=== PATIENT | female | born 1965 | race Caucasian/White ===

== ENCOUNTER 2016-02-28 12:36 | Inpatient (IN) | payer OTHER ==
[~2016-02-28] VITALS: Ht 177.8 cm; Wt 63.2 kg
[~2016-02-28 12:36] MED LIST: ADDERALL30 MG PO; ADVAIR 250/501 DISK IH; ADVAIR HFA120 INHALA IH; CITALOPRAM HBR40 M1 PO; CLARITIN10 M3 PO; CLONAZEPAM1 MG PO; Claritin,Alavart PO; EFFEXOR XR150 MG PO; IBUPROFEN800 MG PO; INDERAL10 MG PO; INDERAL20 MG PO; KLONOPIN0.5 M1 PO; Medrol Dosepak PO; NICOTINE PATCH1 EAC2 TD; PREDNISONE10 MG PO; PROAIR HFA8.5 GM IH; Proventil,Ventolin H IH; RISPERDAL0.5 MG PO; RISPERDAL1 MG PO; RISPERDAL2 MG PO; SPIRIVA RESPIMAT4 GM IH; SPIRIVA1 INHALATI IH; STRATTERA100 MG PO; STRATTERA60 MG PO; Strattera PO; VENLAFAXINE HC150 M1 PO; VITAMIN D31000 UNIT PO; VYVANSE70 MG PO; Vyvanse PO; Zithromax PO; risperDAL PO
[2016-02-28 13:20] LABS: EOSINOPHIL (%) 0.8 % (0-5); EOSINOPHIL COUNT 0.1 K/uL (0-0.3); HEMATOCRIT 36.3 % (36.0-46.0); IMMATURE GRANULOCYTE (%) 0.2 % (0.0-0.7); IMMATURE GRANULOCYTE COUNT 0.2 K/uL; LYMPHOCYTE COUNT 0.7 K/uL (1.0-2.8); MCH 31.1 PG (29.0-34.0); MCHC 32.8 G/DL (30.0-36.0); MCV 94.8 FL (83-99); MEAN PLAT.VOLUME 8.9 uM^3 (9.5-12.4); MONOCYTE (%) 8.4 % (3-12); MONOCYTE COUNT 0.8 K/uL (0-0.8); NEUTROPHIL (%) 82.4 % (45-76); NEUTROPHIL COUNT 7.4 K/uL (1.8-6.4); PLATELET COUNT 329 K/uL (156-360); RBC DIS.WIDTH-CV 11.9 % (11.8-14.6); RBC DIS.WIDTH-SD 40.4 % (39-53); RED BLOOD COUNT 3.83 M/uL (3.80-5.20)
[2016-02-28 13:26] LABS: CHLORIDE 95 mEq/L (99-109); POTASSIUM 3.8 mEq/L (3.7-5.4); SODIUM 136 mEq/L (136-147)
[2016-02-28 13:28] LABS: GLUCOSE 112 mg/dL (70-99)
[2016-02-28 13:29] LABS: ANION GAP 9 MEQ/L (2-14)
[2016-02-28 13:30] LABS: TOTAL BILIRUBIN 0.5 mg/dL (0.0-1.0)
[2016-02-28 13:31] LABS: ALKALINE PHOSPHATASE 74 IU/L (3-129)
[2016-02-28 13:32] LABS: GFR ESTIMATE (CALCULATED) > 59 mL/min/
[2016-02-28 13:33] LABS: UREA NITROGEN (BUN) 13 mg/dL (9-23)
[2016-02-28 18:37] LABS: ADD MIUA? NO; BILIRUBIN NEGATIVE; BLOOD NEGATIVE; COLOR YELLOW ((YELLOW)); GLUCOSE (STRIP) NEGATIVE; KETONES NEGATIVE; LEUKOCYTES NEGATIVE; NITRITE NEGATIVE; PH, URINE 6.5 (5-8); PROTEIN (STRIP) TRACE
[2016-02-28] MEDS ORDERED: INDERAL10 MG PO (19:38)
[2016-02-28] MEDS ORDERED: NICOTINE PATCH1 EAC1 TD (19:38)
[2016-02-28] MEDS ORDERED: EFFEXOR XR75 MG PO (19:39)
[2016-02-28] MEDS ORDERED: VENLAFAXINE HCL75 M3 PO (19:39)
[2016-02-28] MEDS ORDERED: ZYPREXA5 MG PO (19:43)
[2016-02-28] MEDS ORDERED: KENALOG,ARISTOC15 GM TP (19:43)
[2016-02-28 21:50] LABS: D-DIMER ELISA > 4.00 mg/L FEU (< 0.57)
[2016-02-28 22:05] LABS: TROP-I INTERPRETATION NEGATIVE; TROPONIN-I < 0.01 ng/mL (0.0-0.30)
[2016-02-28 23:33] VITALS: BP 112/54
[2016-02-29 02:42] LABS: HEMATOCRIT 34.8 % (36.0-46.0); MCH 31.6 PG (29.0-34.0); MCHC 32.8 G/DL (30.0-36.0); MCV 96.4 FL (83-99); MEAN PLAT.VOLUME 8.8 uM^3 (9.5-12.4); PLATELET COUNT 303 K/uL (156-360); RBC DIS.WIDTH-CV 12.3 % (11.8-14.6); RBC DIS.WIDTH-SD 42.1 % (39-53); RED BLOOD COUNT 3.61 M/uL (3.80-5.20); WHITE BLOOD COUNT 8.5 K/uL (4.1-10.2)
[2016-02-29 02:51] LABS: CHLORIDE 99 mEq/L (99-109); POTASSIUM 3.8 mEq/L (3.7-5.4); SODIUM 141 mEq/L (136-147)
[2016-02-29 02:54] LABS: GLUCOSE 100 mg/dL (70-99)
[2016-02-29 02:55] LABS: ANION GAP 11 MEQ/L (2-14); TOTAL BILIRUBIN 0.4 mg/dL (0.0-1.0)
[2016-02-29 02:57] LABS: ALKALINE PHOSPHATASE 71 IU/L (3-129); GFR ESTIMATE (CALCULATED) > 59 mL/min/
[2016-02-29 02:58] LABS: UREA NITROGEN (BUN) 10 mg/dL (9-23)
[2016-02-29 03:05] LABS: TROP-I INTERPRETATION NEGATIVE; TROPONIN-I 0.08 ng/mL (0.0-0.30)
[2016-02-29 04:51] VITALS: BP 90/47
[2016-02-29 08:00] VITALS: BP 106/53
[2016-02-29 09:27] LABS: TROP-I INTERPRETATION NEGATIVE; TROPONIN-I 0.26 ng/mL (0.0-0.30)
[2016-02-29 12:31] VITALS: BP 116/58
[2016-02-29 16:03] VITALS: BP 114/59
[2016-02-29 19:02] LABS: PREALBUMIN < 3.0 mg/dL (10-40)
[2016-02-29 20:29] VITALS: BP 111/56
[2016-02-29 23:43] VITALS: BP 113/58
[2016-03-01 01:25] LABS: TROP-I INTERPRETATION INDETERMINATE; TROPONIN-I 0.32 ng/mL (0.0-0.30)
[2016-03-01 04:13] VITALS: BP 115/92
[2016-03-01 07:23] LABS: HEMATOCRIT 35.9 % (36.0-46.0); MCH 31.3 PG (29.0-34.0); MCHC 32.3 G/DL (30.0-36.0); MCV 96.8 FL (83-99); MEAN PLAT.VOLUME 9.4 uM^3 (9.5-12.4); PLATELET COUNT 320 K/uL (156-360); RBC DIS.WIDTH-CV 12.6 % (11.8-14.6); RBC DIS.WIDTH-SD 44.7 % (39-53); RED BLOOD COUNT 3.71 M/uL (3.80-5.20); WHITE BLOOD COUNT 10.7 K/uL (4.1-10.2)
[2016-03-01 07:32] LABS: INTER. NORMALIZED RATIO 1.1; PROTHROMBIN TIME 11.3 (9.2-11.2)
[2016-03-01 07:34] VITALS: BP 124/61
[2016-03-01 07:47] LABS: ANION GAP 10 MEQ/L (2-14); CHLORIDE 97 MEQ/L (99-109); GFR ESTIMATE (CALCULATED) > 59 mL/min/; GLUCOSE 107 mg/dL (70-99); POTASSIUM 3.8 MEQ/L (3.7-5.4); SAMPLE HEMOLYSIS CHECK 1; SAMPLE ICTERIC CHECK 0; SAMPLE LIPEMIA CHECK 0; SODIUM 143 MEQ/L (136-147); UREA NITROGEN (BUN) 4 mg/dL (9-23)
[2016-03-01 07:48] LABS: TROP-I INTERPRETATION INDETERMINATE; TROPONIN-I 0.38 ng/mL (0.0-0.30)
[2016-03-01 12:23] VITALS: BP 101/56
[2016-03-01 15:42] VITALS: BP 115/69
[2016-03-01 20:21] VITALS: BP 108/62
[2016-03-01 23:33] LABS: ADD MIUA? NO; BILIRUBIN NEGATIVE; BLOOD NEGATIVE; COLOR YELLOW ((YELLOW)); GLUCOSE (STRIP) NEGATIVE; KETONES NEGATIVE; LEUKOCYTES NEGATIVE; NITRITE NEGATIVE; PROTEIN (STRIP) NEGATIVE; SPECIFIC GRAVITY 1.012 (1.000-1.030); UCUL ADDED? NO; UROBILINOGEN 0.2 MG/DL (0.2-1.0)
[2016-03-02 00:06] VITALS: BP 109/59
[2016-03-02 04:14] VITALS: BP 100/51
[2016-03-02 07:44] VITALS: BP 112/81
[2016-03-02 11:44] VITALS: BP 112/56
[2016-03-02 13:24] LABS: CHLAMYDIA TRACHOMATIS NEGATIVE; NEISSERIA GONORRHOEAE NEGATIVE
[2016-03-02 15:55] VITALS: BP 114/68
[2016-03-02 21:17] VITALS: BP 132/69
[2016-03-03] VITALS (8 sets, daily range): BP systolic 100–136; BP diastolic 52–78
[2016-03-03 06:54] LABS: C DIFF TOXIN NEGATIVE (NEGATIVE)
[2016-03-03 06:56] LABS: PROBE CHECK PASS; SPECIMEN PROCESSING CONTROL PASS
[2016-03-03 10:04] LABS: HEMATOCRIT 34.2 % (36.0-46.0); MCH 31.4 PG (29.0-34.0); MCHC 31.6 G/DL (30.0-36.0); MCV 99.4 FL (83-99); MEAN PLAT.VOLUME 9.6 uM^3 (9.5-12.4); PLATELET COUNT 295 K/uL (156-360); RBC DIS.WIDTH-CV 12.7 % (11.8-14.6); RBC DIS.WIDTH-SD 45.9 % (39-53); RED BLOOD COUNT 3.44 M/uL (3.80-5.20)
[2016-03-03 10:08] LABS: WHITE BLOOD COUNT 5.6 K/uL (4.1-10.2)
[2016-03-03 10:23] LABS: ANION GAP ND MEQ/L (2-14); CHLORIDE 99 MEQ/L (99-109); GFR ESTIMATE (CALCULATED) > 59 mL/min/; GLUCOSE 87 mg/dL (70-99); POTASSIUM 3.6 MEQ/L (3.7-5.4); SAMPLE HEMOLYSIS CHECK 0; SAMPLE ICTERIC CHECK 0; SAMPLE LIPEMIA CHECK 0; SODIUM 147 MEQ/L (136-147); UREA NITROGEN (BUN) 5 mg/dL (9-23)
[2016-03-03 10:26] LABS: CARBON DIOXIDE (BICARBONATE) > 40.0 MEQ/L (20-31)
[2016-03-03 10:31] LABS: TROP-I INTERPRETATION NEGATIVE; TROPONIN-I 0.06 ng/mL (0.0-0.30)
[2016-03-04] VITALS (8 sets, daily range): BP systolic 99–129; BP diastolic 53–94
[2016-03-04 05:42] LABS: ADD MIUA? NO; BILIRUBIN NEGATIVE; BLOOD NEGATIVE; COLOR YELLOW ((YELLOW)); GLUCOSE (STRIP) NEGATIVE; KETONES NEGATIVE; LEUKOCYTES NEGATIVE; NITRITE NEGATIVE; PH, URINE 7.5 (5-8); PROTEIN (STRIP) NEGATIVE; SPECIFIC GRAVITY 1.011 (1.000-1.030); UCUL ADDED? NO; UROBILINOGEN 0.2 MG/DL (0.2-1.0)
[2016-03-04 09:53] LABS: BASE EXCESS 13.1 mEq/L (-3 to +3); BICARBONATE 39.9 mEq/L (22-26); CARBOXY HGB 1.8 % (0-5); COMMENTS - BLOOD GASES A+C+; DEVICE NC; METHEMOGLOBIN 1.1 % (0-1.5); O2 FLOW 3 L/MIN; PCO2 63 mm Hg (35-45); PO2 87 mm Hg (80-100); SITE RR; TOTAL RESP RATE 14 resp/min; pH 7.41 (7.35-7.45)
[2016-03-05 06:44] LABS: EOSINOPHIL (%) 0 % (0-5); HEMATOCRIT 30.2 % (36.0-46.0); IMMATURE GRANULOCYTE (%) 0.2 % (0.0-0.7); LYMPHOCYTE COUNT 0.6 K/uL (1.0-2.8); MCH 31.5 PG (29.0-34.0); MCHC 32.8 G/DL (30.0-36.0); MCV 96.2 FL (83-99); MEAN PLAT.VOLUME 9.6 uM^3 (9.5-12.4); MONOCYTE (%) 2.4 % (3-12); MONOCYTE COUNT 0.1 K/uL (0-0.8); NEUTROPHIL (%) 82.3 % (45-76); NEUTROPHIL COUNT 3.4 K/uL (1.8-6.4); PLATELET COUNT 324 K/uL (156-360); RBC DIS.WIDTH-CV 12.3 % (11.8-14.6); RBC DIS.WIDTH-SD 43.3 % (39-53); RED BLOOD COUNT 3.14 M/uL (3.80-5.20); WHITE BLOOD COUNT 4.2 K/uL (4.1-10.2)
[2016-03-05 07:13] LABS: ANION GAP 8 MEQ/L (2-14); CHLORIDE 98 MEQ/L (99-109); GFR ESTIMATE (CALCULATED) > 59 mL/min/; GLUCOSE 99 mg/dL (70-99); POTASSIUM 4.2 MEQ/L (3.7-5.4); SAMPLE HEMOLYSIS CHECK 0; SAMPLE ICTERIC CHECK 0; SAMPLE LIPEMIA CHECK 0; SODIUM 142 MEQ/L (136-147); UREA NITROGEN (BUN) 7 mg/dL (9-23)
[2016-03-05 08:13] VITALS: BP 117/62
[2016-03-05 11:42] VITALS: BP 113/65
[2016-03-05 15:45] VITALS: BP 142/77
[2016-03-05 19:30] VITALS: BP 115/55
[2016-03-05 23:05] VITALS: BP 111/68
[2016-03-06 03:05] VITALS: BP 100/65
[2016-03-06 07:43] LABS: DELETE MACHINE DIFF? YES
[2016-03-06 07:44] LABS: HEMATOCRIT 30.9 % (36.0-46.0); MCH 31.2 PG (29.0-34.0); MCHC 32.4 G/DL (30.0-36.0); MCV 96.3 FL (83-99); RBC DIS.WIDTH-CV 12.5 % (11.8-14.6); RBC DIS.WIDTH-SD 43.7 % (39-53); RED BLOOD COUNT 3.21 M/uL (3.80-5.20)
[2016-03-06 07:50] LABS: WHITE BLOOD COUNT 6.2 K/uL (4.1-10.2)
[2016-03-06 08:15] LABS: ANION GAP 13 MEQ/L (2-14); CHLORIDE 98 MEQ/L (99-109); GFR ESTIMATE (CALCULATED) > 59 mL/min/; GLUCOSE 101 mg/dL (70-99); POTASSIUM 4.5 MEQ/L (3.7-5.4); SAMPLE HEMOLYSIS CHECK 1; SAMPLE ICTERIC CHECK 0; SAMPLE LIPEMIA CHECK 0; SODIUM 143 MEQ/L (136-147); UREA NITROGEN (BUN) 8 mg/dL (9-23)
[2016-03-06 08:42] VITALS: BP 101/62
[2016-03-06 09:03] LABS: MEAN PLAT.VOLUME 10.7 uM^3 (9.5-12.4); PLAT.SUFFICIENCY ADEQUATE
[2016-03-06 19:35] VITALS: BP 122/72
[2016-03-06 23:26] VITALS: BP 122/55
[2016-03-07 03:23] VITALS: BP 137/69
[2016-03-07 06:59] LABS: EOSINOPHIL (%) 0 % (0-5); HEMATOCRIT 29.1 % (36.0-46.0); IMMATURE GRANULOCYTE (%) 0.5 % (0.0-0.7); LYMPHOCYTE COUNT 1.3 K/uL (1.0-2.8); MCH 30.8 PG (29.0-34.0); MCHC 32.3 G/DL (30.0-36.0); MCV 95.4 FL (83-99); MEAN PLAT.VOLUME 9.8 uM^3 (9.5-12.4); MONOCYTE COUNT 0.4 K/uL (0-0.8); NEUTROPHIL (%) 73.7 % (45-76); NEUTROPHIL COUNT 4.9 K/uL (1.8-6.4); PLATELET COUNT 385 K/uL (156-360); RBC DIS.WIDTH-CV 12.6 % (11.8-14.6); RBC DIS.WIDTH-SD 43.6 % (39-53); RED BLOOD COUNT 3.05 M/uL (3.80-5.20); WHITE BLOOD COUNT 6.7 K/uL (4.1-10.2)
[2016-03-07 07:26] VITALS: BP 109/64
[2016-03-07 07:41] LABS: ANION GAP 6 MEQ/L (2-14); CHLORIDE 95 MEQ/L (99-109); GFR ESTIMATE (CALCULATED) > 59 mL/min/; GLUCOSE 73 mg/dL (70-99); POTASSIUM 4.1 MEQ/L (3.7-5.4); SAMPLE HEMOLYSIS CHECK 0; SAMPLE ICTERIC CHECK 0; SAMPLE LIPEMIA CHECK 0; SODIUM 136 MEQ/L (136-147); UREA NITROGEN (BUN) 14 mg/dL (9-23)
[2016-03-07] MEDS ORDERED: CIPROFLOXACIN500 M1 PO (10:00)
[2016-03-07] MEDS ORDERED: PREDNISONE10 MG PO (10:00)
[2016-03-07 11:46] VITALS: BP 124/71
== END 2016-03-07 13:44 | disposition home or self-care (01) | DRG 757 ==
LOC: EME → EDBD 12:36 → 5WEST 20:47 → EDOF 20:47 → 5WEST 22:38 → 2EAST 02-29 11:27 → 5WEST 02-29 11:27 → 2EAST 03-03 17:06
PROVIDERS: Internal Medicine; Internal Medicine Gastroenterology; Nurse Practitioner Adult Health; Nurse Practitioner Family; Physician Assistant; Physician Assistant Medical; Thoracic Surgery (Cardiothoracic Vascular Surgery)
PROC: 0J9730Z Drainage of Back Subcutaneous Tissue and Fascia with Drainage Device, Percutaneous Approach (ICD-10-PCS; principal; 2016-02-28)
DX: N73.0 Acute parametritis and pelvic cellulitis (principal); K35.2 Acute appendicitis with generalized peritonitis; J96.12 Chronic respiratory failure with hypercapnia; J96.11 Chronic respiratory failure with hypoxia; R64 Cachexia; E44.1 Mild protein-calorie malnutrition; Z68.1 Body mass index [BMI] 19.9 or less, adult; F31.4 Bipolar disorder, current episode depressed, severe, without psychotic features; J44.1 Chronic obstructive pulmonary disease with (acute) exacerbation; E87.2 Acidosis; N94.89 Other specified conditions associated with female genital organs and menstrual cycle; B96.20 Unspecified Escherichia coli [E. coli] as the cause of diseases classified elsewhere; J98.4 Other disorders of lung; R32 Unspecified urinary incontinence; I51.7 Cardiomegaly; G43.909 Migraine, unspecified, not intractable, without status migrainosus; F17.210 Nicotine dependence, cigarettes, uncomplicated; F34.1 Dysthymic disorder; E03.9 Hypothyroidism, unspecified; F41.0 Panic disorder [episodic paroxysmal anxiety]; T17.900A Unspecified foreign body in respiratory tract, part unspecified causing asphyxiation, initial encounter; Z99.81 Dependence on supplemental oxygen; Z88.0 Allergy status to penicillin; Y92.9 Unspecified place or not applicable
CPT/HCPCS: 10030; 36600; 71020; 71275; 74177; 74430; 80048; 80053; 80069; 81003; 82436; 82803; 83605; 84133; 84134; 84300; 84439; 84443; 84466; 84481; 84484; 84540; 85025; 85027; 85379; 85610; 87070; 87075; 87077; 87186; 87205; 87491; 87493; 87591; 93005; 94010; 94640; 94640 76; 94760; 94799; 99202; 99281; 99285; C1769; G0378; J0696; J1200; J1644; J1885; J2270; J2405; J2920; J2930; J3010; J7030; J7040; J7050; J7512; S0028

== ENCOUNTER 2016-03-30 17:50 | Inpatient (IN) | payer OTHER ==
[~2016-03-30] VITALS: Ht 177.8 cm; Wt 53.7 kg
[~2016-03-30 17:50] MED LIST changes: +CIPROFLOXACIN500 M1 PO; +EFFEXOR XR75 MG PO; +KENALOG,ARISTOC15 GM TP; +NICOTINE PATCH1 EAC1 TD; +VENLAFAXINE HCL75 M3 PO; +ZYPREXA5 MG PO
[2016-03-30] MEDS ORDERED: VITAMIN B12 100MCG PO (18:21)
[2016-03-30 18:39] LABS: EOSINOPHIL (%) 0.8 % (0-5); EOSINOPHIL COUNT 0.1 K/uL (0-0.3); HEMATOCRIT 41.1 % (36.0-46.0); IMMATURE GRANULOCYTE (%) 0.1 % (0.0-0.7); IMMATURE GRANULOCYTE COUNT 0.1 K/uL; LYMPHOCYTE COUNT 1.2 K/uL (1.0-2.8); MCH 32.7 PG (29.0-34.0); MCHC 34.3 G/DL (30.0-36.0); MCV 95.4 FL (83-99); MONOCYTE (%) 8.1 % (3-12); MONOCYTE COUNT 0.9 K/uL (0-0.8); NEUTROPHIL (%) 79.6 % (45-76); NEUTROPHIL COUNT 8.4 K/uL (1.8-6.4); RBC DIS.WIDTH-CV 13.6 % (11.8-14.6); RBC DIS.WIDTH-SD 45.7 % (39-53)
[2016-03-30 18:45] LABS: CHLORIDE 97 mEq/L (99-109); SODIUM 134 mEq/L (136-147)
[2016-03-30 18:46] LABS: GLUCOSE 102 mg/dL (70-99)
[2016-03-30 18:48] LABS: ANION GAP 10 MEQ/L (2-14)
[2016-03-30 18:50] LABS: GFR ESTIMATE (CALCULATED) > 59 mL/min/
[2016-03-30 18:51] LABS: RED BLOOD COUNT 4.31 M/uL (3.80-5.20); UREA NITROGEN (BUN) 7 mg/dL (9-23); WHITE BLOOD COUNT 10.6 K/uL (4.1-10.2)
[2016-03-30] MEDS ORDERED: VITAMIN D31000 UNIT PO (18:52)
[2016-03-30] MEDS ORDERED: SYMBICORT60 INHALAT IH (18:53)
[2016-03-30] MEDS ORDERED: NIZORAL 2% CREA15 GM TP (18:53)
[2016-03-30 20:04] LABS: MEAN PLAT.VOLUME 9.2 uM^3 (9.5-12.4); PLAT.SUFFICIENCY ADEQUATE
[2016-03-30 20:25] LABS: PLATELET COUNT 221 K/uL (156-360)
[2016-03-30 22:49] VITALS: BP 120/67
[2016-03-31 07:15] LABS: EOSINOPHIL COUNT 0.1 K/uL (0-0.3); HEMATOCRIT 37.7 % (36.0-46.0); IMMATURE GRANULOCYTE (%) 0.3 % (0.0-0.7); LYMPHOCYTE COUNT 1.1 K/uL (1.0-2.8); MCH 31.7 PG (29.0-34.0); MCHC 32.4 G/DL (30.0-36.0); MCV 97.9 FL (83-99); MEAN PLAT.VOLUME 9.3 uM^3 (9.5-12.4); MONOCYTE (%) 6.1 % (3-12); MONOCYTE COUNT 0.5 K/uL (0-0.8); NEUTROPHIL (%) 78.4 % (45-76); NEUTROPHIL COUNT 6.2 K/uL (1.8-6.4); PLATELET COUNT 195 K/uL (156-360); RBC DIS.WIDTH-CV 13.9 % (11.8-14.6); RBC DIS.WIDTH-SD 49.9 % (39-53); RED BLOOD COUNT 3.85 M/uL (3.80-5.20); WHITE BLOOD COUNT 7.9 K/uL (4.1-10.2)
[2016-03-31 08:22] VITALS: BP 100/60
[2016-03-31 08:46] LABS: ANION GAP 8 MEQ/L (2-14); CHLORIDE 101 MEQ/L (99-109); GFR ESTIMATE (CALCULATED) > 59 mL/min/; GLUCOSE 85 mg/dL (70-99); POTASSIUM 4.5 MEQ/L (3.7-5.4); SAMPLE HEMOLYSIS CHECK 0; SAMPLE ICTERIC CHECK 0; SAMPLE LIPEMIA CHECK 0; SODIUM 137 MEQ/L (136-147); UREA NITROGEN (BUN) 6 mg/dL (9-23)
[2016-03-31 15:59] VITALS: BP 109/53
[2016-03-31 22:51] VITALS: BP 110/53
[2016-04-01 06:51] LABS: HEMATOCRIT 39.3 % (36.0-46.0); MCH 32.5 PG (29.0-34.0); MCHC 33.1 G/DL (30.0-36.0); MCV 98.3 FL (83-99); MEAN PLAT.VOLUME 9.5 uM^3 (9.5-12.4); PLATELET COUNT 200 K/uL (156-360); RBC DIS.WIDTH-CV 13.5 % (11.8-14.6); WHITE BLOOD COUNT 7.1 K/uL (4.1-10.2)
[2016-04-01 07:16] LABS: GFR ESTIMATE (CALCULATED) > 59 mL/min/
[2016-04-01 07:18] LABS: ANION GAP 5 MEQ/L (2-14); CHLORIDE 99 MEQ/L (99-109); GFR ESTIMATE (CALCULATED) > 59 mL/min/; GLUCOSE 118 mg/dL (70-99); MAGNESIUM 1.6 mg/dl (1.3-2.7); SAMPLE HEMOLYSIS CHECK 0; SAMPLE ICTERIC CHECK 0; SAMPLE LIPEMIA CHECK 0; SODIUM 139 MEQ/L (136-147); UREA NITROGEN (BUN) 7 mg/dL (9-23)
[2016-04-01 07:27] LABS: VANCOMYCIN, TROUGH 6.8 MCG/ML (10-20)
[2016-04-01 07:30] VITALS: BP 121/57
[2016-04-01 16:49] VITALS: BP 97/54
[2016-04-01 22:48] VITALS: BP 90/42
[2016-04-02 07:15] VITALS: BP 101/51
[2016-04-02 15:46] VITALS: BP 96/52
[2016-04-02 23:34] VITALS: BP 132/69
[2016-04-03 07:16] LABS: GFR ESTIMATE (CALCULATED) > 59 mL/min/
[2016-04-03 08:05] VITALS: BP 139/61
[2016-04-03 16:05] VITALS: BP 111/57
[2016-04-03 22:51] VITALS: BP 105/45
[2016-04-04 08:12] VITALS: BP 110/62
[2016-04-04 08:16] LABS: GFR ESTIMATE (CALCULATED) > 59 mL/min/
[2016-04-04] MEDS ORDERED: ENDOCET 5-3251 EACH PO (12:15)
[2016-04-04] MEDS ORDERED: BACTRIM,SEPT1 TABLET PO (12:15)
== END 2016-04-04 13:44 | disposition home health service (06) | DRG 571 ==
LOC: EME 17:50 → 5EAST 21:23 → EDOF 21:23 → 5EAST 22:19
PROVIDERS: Family Medicine; Internal Medicine; Physician Assistant
PROC: 0JB90ZZ Excision of Buttock Subcutaneous Tissue and Fascia, Open Approach (ICD-10-PCS; principal; 2016-04-02)
DX: L02.31 Cutaneous abscess of buttock (principal); L03.317 Cellulitis of buttock; L02.33 Carbuncle of buttock; M79.89 Other specified soft tissue disorders; B95.62 Methicillin resistant Staphylococcus aureus infection as the cause of diseases classified elsewhere; E87.1 Hypo-osmolality and hyponatremia; E44.0 Moderate protein-calorie malnutrition; J96.10 Chronic respiratory failure, unspecified whether with hypoxia or hypercapnia; J44.9 Chronic obstructive pulmonary disease, unspecified; F31.9 Bipolar disorder, unspecified; E03.9 Hypothyroidism, unspecified; F17.210 Nicotine dependence, cigarettes, uncomplicated; Z99.81 Dependence on supplemental oxygen; Z88.1 Allergy status to other antibiotic agents; Z68.1 Body mass index [BMI] 19.9 or less, adult
CPT/HCPCS: 74177; 80048; 80202; 82565; 83605; 83735; 85025; 85027; 87040; 87070; 87075; 87077; 87147; 87186; 87205; 94640; 94640 76; 94760; 94799; 99202; 99281; 99285; J0692; J1170; J1644; J1885; J2250; J2405; J3010; J3370; J7030; J7050; S0030

== ENCOUNTER 2016-06-05 01:22 | Inpatient (IN) | payer OTHER ==
[~2016-06-05] VITALS: Ht 172.7 cm; Wt 58.6 kg
[~2016-06-05 01:22] MED LIST changes: +BACTRIM,SEPT1 TABLET PO; +ENDOCET 5-3251 EACH PO; +NIZORAL 2% CREA15 GM TP; +SYMBICORT60 INHALAT IH; +VITAMIN B12 100MCG PO
[2016-06-05 01:48] LABS: CREATININE 0.6 mg/dL (0.6-1.3); POTASSIUM 4.1 mEq/L (3.7-5.4)
[2016-06-05 02:08] LABS: HEMATOCRIT 43.5 % (36.0-46.0); MCH 31.5 PG (29.0-34.0); MCHC 31.3 G/DL (30.0-36.0); MCV 100.7 FL (83-99); MEAN PLAT.VOLUME 8.5 uM^3 (9.5-12.4); PLATELET COUNT 292 K/uL (156-360); RBC DIS.WIDTH-CV 14.5 % (11.8-14.6); RBC DIS.WIDTH-SD 50.5 % (39-53); RED BLOOD COUNT 4.32 M/uL (3.80-5.20); WHITE BLOOD COUNT 11.6 K/uL (4.1-10.2)
[2016-06-05 02:10] LABS: CHLORIDE 96 mEq/L (99-109); POTASSIUM 4.2 mEq/L (3.7-5.4); SODIUM 137 mEq/L (136-147)
[2016-06-05 02:12] LABS: GLUCOSE 139 mg/dL (70-99)
[2016-06-05 02:13] LABS: ANION GAP 7 MEQ/L (2-14)
[2016-06-05 02:16] LABS: GFR ESTIMATE (CALCULATED) > 59 mL/min/; UREA NITROGEN (BUN) 11 mg/dL (9-23)
[2016-06-05 02:23] LABS: TROP-I INTERPRETATION NEGATIVE; TROPONIN-I 0.01 ng/mL (0.0-0.30)
[2016-06-05 04:23] LABS: CARBON DIOXIDE (BICARBONATE) 36.8 MEQ/L (20-31)
[2016-06-05 04:59] LABS: BASE EXCESS 10.1 mEq/L (-3 to +3); BICARBONATE 41.6 mEq/L (22-26); CARBOXY HGB 8.7 % (0-5); METHEMOGLOBIN 1.5 % (0-1.5); PO2 66 mm Hg (80-100)
[2016-06-05 05:00] LABS: COMMENTS - BLOOD GASES C+; DEVICE NC; O2 FLOW 4 L/MIN; PCO2 97 mm Hg (35-45); SITE RB
[2016-06-05 05:01] LABS: pH 7.24 (7.35-7.45)
[2016-06-05 05:01] LABS: TOTAL BILIRUBIN 0.2 mg/dL (0.0-1.0)
[2016-06-05 05:02] LABS: ALKALINE PHOSPHATASE 103 IU/L (3-129)
[2016-06-05 05:04] LABS: DIRECT BILIRUBIN 0.1 mg/dL (0.0-0.3)
[2016-06-05 05:06] LABS: AMPHETAMINE NEGATIVE (500 ng/mL); BARBITURATES NEGATIVE (200 ng/mL); BENZODIAZEPINES NEGATIVE (150 ng/mL); COCAINE NEGATIVE (150 ng/mL); INTERNAL CONTROLS VALID? YES; METHADONE NEGATIVE (200 ng/mL); METHAMPHETAMINE NEGATIVE (500 ng/mL); OPIATES (MORPHINE) NEGATIVE (100 ng/mL); OXYCODONE NEGATIVE (100 ng/mL); PHENCYCLIDINE NEGATIVE (25 ng/mL); PROPOXYPHENE NEGATIVE (300 ng/mL); THC CANNABINOIDS NEGATIVE (50 ng/mL); TRICYCLIC ANTIDEPRESSANTS NEGATIVE (300 ng/mL)
[2016-06-05 05:57] LABS: BASE EXCESS 10.9 mEq/L (-3 to +3); BICARBONATE 41.4 mEq/L (22-26); CARBOXY HGB 7.3 % (0-5); METHEMOGLOBIN 1.2 % (0-1.5); PO2 53 mm Hg (80-100)
[2016-06-05 05:58] LABS: COMMENTS - BLOOD GASES C+; DEVICE MASK VENT; FI02 35 %; MODE SPONT; PCO2 86 mm Hg (35-45); PEEP 5 CM/H20; PRES. SUPPORT 12 CM/H2O; SITE RR; TOTAL RESP RATE 22 resp/min; pH 7.29 (7.35-7.45)
[2016-06-05] MEDS ORDERED: VENTOLIN HFA18 GM IH (09:27)
[2016-06-05] MEDS ORDERED: NICODERM CQ1 EAC1 TD (09:29)
[2016-06-05 19:52] VITALS: BP 122/67
[2016-06-05 22:35] VITALS: BP 113/55
[2016-06-06 07:16] LABS: ANION GAP 7 MEQ/L (2-14); CHLORIDE 91 MEQ/L (99-109); GFR ESTIMATE (CALCULATED) > 59 mL/min/; GLUCOSE 125 mg/dL (70-99); HEMATOCRIT 38.3 % (36.0-46.0); MCH 31.6 PG (29.0-34.0); MCHC 32.1 G/DL (30.0-36.0); MCV 98.5 FL (83-99); MEAN PLAT.VOLUME 9.2 uM^3 (9.5-12.4); PLATELET COUNT 272 K/uL (156-360); POTASSIUM 4.7 MEQ/L (3.7-5.4); RBC DIS.WIDTH-CV 14.5 % (11.8-14.6); RBC DIS.WIDTH-SD 48.8 % (39-53); RED BLOOD COUNT 3.89 M/uL (3.80-5.20); SAMPLE HEMOLYSIS CHECK 0; SAMPLE ICTERIC CHECK 0; SAMPLE LIPEMIA CHECK 0; SODIUM 136 MEQ/L (136-147); UREA NITROGEN (BUN) 10 mg/dL (9-23)
[2016-06-06 07:18] LABS: WHITE BLOOD COUNT 5.4 K/uL (4.1-10.2)
[2016-06-06 08:09] LABS: BASE EXCESS 12.1 mEq/L (-3 to +3); COMMENTS - BLOOD GASES A+C+; DEVICE NC; METHEMOGLOBIN 1.4 % (0-1.5); O2 FLOW 3 L/MIN; PCO2 66 mm Hg (35-45); PO2 51 mm Hg (80-100); SITE RR; TOTAL RESP RATE 20 resp/min; pH 7.39 (7.35-7.45)
[2016-06-06 08:17] VITALS: BP 134/66
[2016-06-06 11:47] VITALS: BP 104/56
[2016-06-06 16:54] VITALS: BP 134/69
[2016-06-06 22:42] VITALS: BP 122/66
[2016-06-07 06:15] LABS: EOSINOPHIL (%) 0 % (0-5); HEMATOCRIT 38.5 % (36.0-46.0); IMMATURE GRANULOCYTE (%) 0.6 % (0.0-0.7); INSTRUMENT ABS NEUTROPHIL CT 4.7 K/uL; LYMPHOCYTE COUNT 0.3 K/uL (1.0-2.8); MCH 31.8 PG (29.0-34.0); MCHC 33.2 G/DL (30.0-36.0); MCV 95.8 FL (83-99); MONOCYTE (%) 1.4 % (3-12); MONOCYTE COUNT 0.1 K/uL (0-0.8); NEUTROPHIL (%) 91.6 % (45-76); NEUTROPHIL COUNT 4.7 K/uL (1.8-6.4); PLATELET COUNT 274 K/uL (156-360); RBC DIS.WIDTH-CV 14.4 % (11.8-14.6); RBC DIS.WIDTH-SD 48.8 % (39-53); RED BLOOD COUNT 4.02 M/uL (3.80-5.20); WHITE BLOOD COUNT 5.2 K/uL (4.1-10.2)
[2016-06-07 06:39] LABS: ANION GAP 7 MEQ/L (2-14); CHLORIDE 90 MEQ/L (99-109); GFR ESTIMATE (CALCULATED) > 59 mL/min/; GLUCOSE 117 mg/dL (70-99); MAGNESIUM 1.8 mg/dl (1.3-2.7); POTASSIUM 5.1 MEQ/L (3.7-5.4); SAMPLE HEMOLYSIS CHECK 0; SAMPLE ICTERIC CHECK 0; SAMPLE LIPEMIA CHECK 0; SODIUM 135 MEQ/L (136-147); UREA NITROGEN (BUN) 18 mg/dL (9-23)
[2016-06-07 08:01] VITALS: BP 129/63
[2016-06-07 16:20] VITALS: BP 123/64
[2016-06-07 19:59] VITALS: BP 112/64
[2016-06-08 00:55] VITALS: BP 109/56
[2016-06-08 08:20] VITALS: BP 105/55
[2016-06-08 15:33] VITALS: BP 118/61
[2016-06-08 23:52] VITALS: BP 123/59
[2016-06-09 07:10] VITALS: BP 108/62
[2016-06-09] MEDS ORDERED: ZYPREXA5 MG PO (08:50)
[2016-06-09] MEDS ORDERED: SYMBICORT60 INHALAT IH (08:50)
[2016-06-09] MEDS ORDERED: PREDNISONE10 MG PO (08:50)
[2016-06-09] MEDS ORDERED: VENTOLIN HFA18 GM IH (08:50)
[2016-06-09] MEDS ORDERED: CLONAZEPAM1 MG PO (08:50)
[2016-06-09] MEDS ORDERED: EFFEXOR XR150 MG PO (08:50)
[2016-06-09 15:20] VITALS: BP 130/75
== END 2016-06-09 18:25 | disposition home health service (06) | DRG 190 ==
LOC: EME 01:22 → 5EAST 04:54 → EDOF 04:54 → 5EAST 19:44
PROVIDERS: Emergency Medicine; Family Medicine; Internal Medicine
PROC: 5A09358 Assistance with Respiratory Ventilation, Less than 24 Consecutive Hours, Intermittent Positive Airway Pressure (ICD-10-PCS; principal; 2016-06-05)
DX: J44.1 Chronic obstructive pulmonary disease with (acute) exacerbation (principal); J96.22 Acute and chronic respiratory failure with hypercapnia; J96.21 Acute and chronic respiratory failure with hypoxia; T39.311A Poisoning by propionic acid derivatives, accidental (unintentional), initial encounter; T39.1X1A Poisoning by 4-Aminophenol derivatives, accidental (unintentional), initial encounter; Z99.81 Dependence on supplemental oxygen; D72.829 Elevated white blood cell count, unspecified; F17.210 Nicotine dependence, cigarettes, uncomplicated; F32.9 Major depressive disorder, single episode, unspecified; F41.9 Anxiety disorder, unspecified; R73.9 Hyperglycemia, unspecified; E03.9 Hypothyroidism, unspecified; R56.9 Unspecified convulsions; Z91.14 Patient's other noncompliance with medication regimen
CPT/HCPCS: 36600; 71010; 80047; 80048; 80076; 82803; 83735; 84484; 85025; 85027; 87070; 87205; 93005; 94002; 94640; 94640 76; 94644; 94760; 94799; 99202; 99281; 99285; G0480; J1644; J1885; J1956; J2920; J2930; J7512; J7644

== ENCOUNTER → 2016-08-29 | Outpatient (CLI) | payer OTHER ==
[~2016-08-29] VITALS: Ht 175.3 cm; Wt 54.4 kg
[~2016-08-29] MED LIST changes: +NICODERM CQ1 EAC1 TD; +SEROQUEL12.5 MG PO; +TYLENOL EXTRA500 MG PO; +VENTOLIN HFA18 GM IH
== END | disposition home or self-care (01) ==
LOC: AMB 13:30
DX: K50.90 Crohn's disease, unspecified, without complications (principal); Z53.09 Procedure and treatment not carried out because of other contraindication

== ENCOUNTER → 2016-08-30 | Outpatient (CLI) | payer OTHER | END | disposition home or self-care (01) | LOC: AMB 12:00 | PROC: 0DJD8ZZ Inspection of Lower Intestinal Tract, Via Natural or Artificial Opening Endoscopic (ICD-10-PCS; principal; 2016-08-30) | DX: Z12.11 Encounter for screening for malignant neoplasm of colon (principal); J44.9 Chronic obstructive pulmonary disease, unspecified; E03.9 Hypothyroidism, unspecified; R94.31 Abnormal electrocardiogram [ECG] [EKG]; F17.210 Nicotine dependence, cigarettes, uncomplicated; Z88.0 Allergy status to penicillin; Z87.19 Personal history of other diseases of the digestive system; Z86.14 Personal history of Methicillin resistant Staphylococcus aureus infection ==

== ENCOUNTER 2016-10-11 11:43 | Inpatient (IN) | payer OTHER ==
[~2016-10-11] VITALS: Ht 172.7 cm; Wt 53.7 kg
[2016-10-11 13:05] LABS: EOSINOPHIL (%) 0 % (0-5); IMMATURE GRANULOCYTE (%) 1.2 % (0.0-0.7); IMMATURE GRANULOCYTE COUNT 0.1 K/uL; INSTRUMENT ABS NEUTROPHIL CT 8.9 K/uL; MCH 31.5 PG (29.0-34.0); MCHC 31.2 G/DL (30.0-36.0); MEAN PLAT.VOLUME 9.6 uM^3 (9.5-12.4); MONOCYTE (%) 3.7 % (3-12); MONOCYTE COUNT 0.4 K/uL (0-0.8); NEUTROPHIL (%) 85.2 % (45-76); NEUTROPHIL COUNT 8.9 K/uL (1.8-6.4); NRBC (%) 0.7 /100 WBC (0-0); PLATELET COUNT 231 K/uL (156-360); RBC DIS.WIDTH-CV 12.8 % (11.8-14.6); RBC DIS.WIDTH-SD 46.1 % (39-53); RED BLOOD COUNT 4.06 M/uL (3.80-5.20); WHITE BLOOD COUNT 10.5 K/uL (4.1-10.2)
[2016-10-11 13:19] LABS: CHLORIDE 99 mEq/L (99-109); POTASSIUM 5.4 mEq/L (3.7-5.4); SODIUM 138 mEq/L (136-147)
[2016-10-11 13:21] LABS: GLUCOSE 112 mg/dL (70-99)
[2016-10-11 13:23] LABS: ANION GAP 11 MEQ/L (2-14)
[2016-10-11 13:25] LABS: GFR ESTIMATE (CALCULATED) > 59 mL/min/
[2016-10-11 13:26] LABS: UREA NITROGEN (BUN) 13 mg/dL (9-23)
[2016-10-11 13:28] LABS: TROP-I INTERPRETATION NEGATIVE; TROPONIN-I < 0.01 ng/mL (0.0-0.30)
[2016-10-11] MEDS ORDERED: CLONAZEPAM1 MG PO (15:59)
[2016-10-11] MEDS ORDERED: EFFEXOR XR75 MG PO (16:00)
[2016-10-11] MEDS ORDERED: SPIRIVA1 INHALATI IH (16:01)
[2016-10-11 16:12] LABS: BASE EXCESS 3.3 mEq/L (-3 to +3); BICARBONATE 32.9 mEq/L (22-26); CARBOXY HGB 3.4 % (0-5); METHEMOGLOBIN 1.1 % (0-1.5); PCO2 75 mm Hg (35-45); PO2 67 mm Hg (80-100)
[2016-10-11 16:13] LABS: COMMENTS - BLOOD GASES A+C+; DEVICE NC; O2 FLOW 6 L/MIN; SITE LR; pH 7.25 (7.35-7.45)
[2016-10-11 17:06] LABS: BASE EXCESS 6.9 mEq/L (-3 to +3); BICARBONATE 35.9 mEq/L (22-26); CARBOXY HGB 3.4 % (0-5); PCO2 73 mm Hg (35-45)
[2016-10-11 17:07] LABS: PO2 53 mm Hg (80-100)
[2016-10-11 17:08] LABS: COMMENTS - BLOOD GASES A+C+; CONTINUOUS POS AIRWAY PRESSURE 5 cm H2O; DEVICE MASK VENT; FI02 35 %; MODE SPON; PRES. SUPPORT 10 CM/H2O; SITE LR; TOTAL RESP RATE 20 resp/min
[2016-10-11 18:16] LABS: BASE EXCESS 6.9 mEq/L (-3 to +3); BICARBONATE 36.7 mEq/L (22-26); CARBOXY HGB 3.2 % (0-5); METHEMOGLOBIN 0.9 % (0-1.5)
[2016-10-11 18:17] LABS: COMMENTS - BLOOD GASES A+C+; CONTINUOUS POS AIRWAY PRESSURE 5 cm H2O; DEVICE VENT VIA MASK; FI02 40 %; MODE SPON; PCO2 80 mm Hg (35-45); PO2 78 mm Hg (80-100); PRES. SUPPORT 10 CM/H2O; SITE LR; TOTAL RESP RATE 17 resp/min; pH 7.27 (7.35-7.45)
[2016-10-12] VITALS (19 sets, daily range): BP systolic 102–134; BP diastolic 52–83
[2016-10-12 03:25] LABS: METH RESISTANT S AUREUS PCR NEGATIVE (NEGATIVE); PROBE CHECK PASS; SPECIMEN PROCESSING CONTROL PASS
[2016-10-12 05:33] LABS: HEMATOCRIT 36.6 % (36.0-46.0); MCH 32.8 PG (29.0-34.0); MCHC 33.1 G/DL (30.0-36.0); MCV 99.2 FL (83-99); MEAN PLAT.VOLUME 9.5 uM^3 (9.5-12.4); NRBC (%) 0.5 /100 WBC (0-0); PLATELET COUNT 224 K/uL (156-360); RBC DIS.WIDTH-CV 12.9 % (11.8-14.6); RBC DIS.WIDTH-SD 44.5 % (39-53); RED BLOOD COUNT 3.69 M/uL (3.80-5.20); WHITE BLOOD COUNT 6.1 K/uL (4.1-10.2)
[2016-10-12 05:58] LABS: ANION GAP 7 MEQ/L (2-14); CHLORIDE 98 MEQ/L (99-109); GFR ESTIMATE (CALCULATED) > 59 mL/min/; GLUCOSE 106 mg/dL (70-99); MAGNESIUM 1.5 mg/dl (1.3-2.7); POTASSIUM 5.3 MEQ/L (3.7-5.4); SAMPLE HEMOLYSIS CHECK 0; SAMPLE ICTERIC CHECK 0; SAMPLE LIPEMIA CHECK 0; SODIUM 139 MEQ/L (136-147); UREA NITROGEN (BUN) 18 mg/dL (9-23)
[2016-10-12 07:16] LABS: BASE EXCESS 9.8 mEq/L (-3 to +3); BICARBONATE 36.9 mEq/L (22-26); CARBOXY HGB 2.5 % (0-5); METHEMOGLOBIN 1.5 % (0-1.5); PO2 67 mm Hg (80-100)
[2016-10-12 07:17] LABS: COMMENTS - BLOOD GASES A+C+; CONTINUOUS POS AIRWAY PRESSURE 5 cm H2O; DEVICE NIV; FI02 30 %; PCO2 61 mm Hg (35-45); PRES. SUPPORT 15 CM/H2O; SITE RR; TOTAL RESP RATE 14 resp/min; pH 7.39 (7.35-7.45)
[2016-10-13] VITALS: BP 117/68
[2016-10-13 04:00] VITALS: BP 113/67
[2016-10-13 05:44] LABS: HEMATOCRIT 38.1 % (36.0-46.0); MCH 32.4 PG (29.0-34.0); MCHC 33.3 G/DL (30.0-36.0); MCV 97.2 FL (83-99); PLATELET COUNT 255 K/uL (156-360); RBC DIS.WIDTH-CV 13.1 % (11.8-14.6); RBC DIS.WIDTH-SD 43.4 % (39-53); RED BLOOD COUNT 3.92 M/uL (3.80-5.20); WHITE BLOOD COUNT 5.3 K/uL (4.1-10.2)
[2016-10-13 06:09] LABS: ANION GAP 5 MEQ/L (2-14); CHLORIDE 95 MEQ/L (99-109); GFR ESTIMATE (CALCULATED) > 59 mL/min/; GLUCOSE 122 mg/dL (70-99); MAGNESIUM 1.7 mg/dl (1.3-2.7); POTASSIUM 4.8 MEQ/L (3.7-5.4); SAMPLE HEMOLYSIS CHECK 0; SAMPLE ICTERIC CHECK 0; SAMPLE LIPEMIA CHECK 0; SODIUM 137 MEQ/L (136-147); UREA NITROGEN (BUN) 24 mg/dL (9-23)
[2016-10-13 08:00] VITALS: BP 129/84
[2016-10-13 12:00] VITALS: BP 116/74
[2016-10-13 16:00] VITALS: BP 116/74
[2016-10-13 20:00] VITALS: BP 115/71
[2016-10-14] VITALS: BP 105/64
[2016-10-14 04:00] VITALS: BP 110/61
[2016-10-14 05:40] LABS: HEMATOCRIT 38.3 % (36.0-46.0); MCH 31.5 PG (29.0-34.0); MCHC 32.9 G/DL (30.0-36.0); MCV 95.8 FL (83-99); MEAN PLAT.VOLUME 9.4 uM^3 (9.5-12.4); PLATELET COUNT 263 K/uL (156-360); RBC DIS.WIDTH-SD 42.1 % (39-53); WHITE BLOOD COUNT 3.6 K/uL (4.1-10.2)
[2016-10-14 06:44] LABS: ANION GAP 5 MEQ/L (2-14); CHLORIDE 93 MEQ/L (99-109); GFR ESTIMATE (CALCULATED) > 59 mL/min/; GLUCOSE 112 mg/dL (70-99); MAGNESIUM 1.7 mg/dl (1.3-2.7); POTASSIUM 4.6 MEQ/L (3.7-5.4); SAMPLE HEMOLYSIS CHECK 0; SAMPLE ICTERIC CHECK 0; SAMPLE LIPEMIA CHECK 0; SODIUM 138 MEQ/L (136-147); UREA NITROGEN (BUN) 17 mg/dL (9-23)
[2016-10-14 08:00] VITALS: BP 142/84
[2016-10-14 13:00] VITALS: BP 105/70
[2016-10-14 16:00] VITALS: BP 134/73
[2016-10-14 20:00] VITALS: BP 110/55
[2016-10-15] VITALS: BP 130/79
[2016-10-15 04:00] VITALS: BP 100/64
[2016-10-15 06:03] LABS: HEMATOCRIT 40.2 % (36.0-46.0); MCHC 33.3 G/DL (30.0-36.0); MCV 95.9 FL (83-99); MEAN PLAT.VOLUME 9.3 uM^3 (9.5-12.4); PLATELET COUNT 279 K/uL (156-360); RBC DIS.WIDTH-CV 13.2 % (11.8-14.6); RBC DIS.WIDTH-SD 41.8 % (39-53); RED BLOOD COUNT 4.19 M/uL (3.80-5.20); WHITE BLOOD COUNT 3.1 K/uL (4.1-10.2)
[2016-10-15 07:03] LABS: ANION GAP ND MEQ/L (2-14); CHLORIDE 92 MEQ/L (99-109); GFR ESTIMATE (CALCULATED) > 59 mL/min/; GLUCOSE 106 mg/dL (70-99); MAGNESIUM 1.7 mg/dl (1.3-2.7); SAMPLE HEMOLYSIS CHECK 0; SAMPLE ICTERIC CHECK 0; SAMPLE LIPEMIA CHECK 0; SODIUM 137 MEQ/L (136-147); UREA NITROGEN (BUN) 13 mg/dL (9-23)
[2016-10-15 07:04] LABS: CARBON DIOXIDE (BICARBONATE) > 40.0 MEQ/L (20-31)
[2016-10-15 08:00] VITALS: BP 131/79
[2016-10-15 09:22] LABS: BASE EXCESS 10.7 mEq/L (-3 to +3); BICARBONATE 39.7 mEq/L (22-26); CARBOXY HGB 2.6 % (0-5); METHEMOGLOBIN 1.5 % (0-1.5); PO2 60 mm Hg (80-100); pH 7.35 (7.35-7.45)
[2016-10-15 09:25] LABS: COMMENTS - BLOOD GASES C+; DEVICE NC; O2 FLOW 3 L/MIN; PCO2 72 mm Hg (35-45); SITE RR
[2016-10-15 16:00] VITALS: BP 126/78
[2016-10-15 17:00] VITALS: BP 126/78
[2016-10-15 20:00] VITALS: BP 115/61
[2016-10-16] VITALS (7 sets, daily range): BP systolic 109–136; BP diastolic 58–78
[2016-10-16 05:53] LABS: BASE EXCESS 14.6 mEq/L (-3 to +3); BICARBONATE 40.8 mEq/L (22-26); CARBOXY HGB 3.5 % (0-5); COMMENTS - BLOOD GASES A+C+; METHEMOGLOBIN 1.2 % (0-1.5); PCO2 56 mm Hg (35-45); PO2 59 mm Hg (80-100); SITE LR; pH 7.47 (7.35-7.45)
[2016-10-16 05:54] LABS: O2 FLOW 2 L/MIN
[2016-10-16 05:55] LABS: DEVICE NASALCAN; TOTAL RESP RATE 21 resp/min
[2016-10-16 06:13] LABS: HEMATOCRIT 38.9 % (36.0-46.0); MCH 32.6 PG (29.0-34.0); MCHC 34.2 G/DL (30.0-36.0); MCV 95.3 FL (83-99); MEAN PLAT.VOLUME 9.3 uM^3 (9.5-12.4); PLATELET COUNT 285 K/uL (156-360); RBC DIS.WIDTH-CV 13.1 % (11.8-14.6); RBC DIS.WIDTH-SD 42.5 % (39-53); RED BLOOD COUNT 4.08 M/uL (3.80-5.20)
[2016-10-16 06:41] LABS: ANION GAP 7 MEQ/L (2-14); CHLORIDE 93 MEQ/L (99-109); GFR ESTIMATE (CALCULATED) > 59 mL/min/; GLUCOSE 115 mg/dL (70-99); MAGNESIUM 1.7 mg/dl (1.3-2.7); POTASSIUM 4.3 MEQ/L (3.7-5.4); SAMPLE HEMOLYSIS CHECK 0; SAMPLE ICTERIC CHECK 0; SAMPLE LIPEMIA CHECK 0; SODIUM 139 MEQ/L (136-147); UREA NITROGEN (BUN) 13 mg/dL (9-23)
[2016-10-17] VITALS: BP 142/68
[2016-10-17 04:00] VITALS: BP 142/82
[2016-10-17 04:47] LABS: MCH 32.2 PG (29.0-34.0); MCHC 34.2 G/DL (30.0-36.0); MCV 94.1 FL (83-99); PLATELET COUNT 307 K/uL (156-360); RBC DIS.WIDTH-CV 12.8 % (11.8-14.6); RBC DIS.WIDTH-SD 41.7 % (39-53); RED BLOOD COUNT 4.04 M/uL (3.80-5.20); WHITE BLOOD COUNT 6.5 K/uL (4.1-10.2)
[2016-10-17 05:14] LABS: CHLORIDE 93 mEq/L (99-109); POTASSIUM 4.2 mEq/L (3.7-5.4); SODIUM 135 mEq/L (136-147)
[2016-10-17 05:15] LABS: MAGNESIUM 1.7 mg/dL (1.3-2.7)
[2016-10-17 05:16] LABS: GLUCOSE 97 mg/dL (70-99)
[2016-10-17 05:18] LABS: ANION GAP 7 MEQ/L (2-14)
[2016-10-17 05:20] LABS: GFR ESTIMATE (CALCULATED) > 59 mL/min/
[2016-10-17 05:21] LABS: UREA NITROGEN (BUN) 18 mg/dL (9-23)
[2016-10-17 08:00] VITALS: BP 124/64
[2016-10-17 08:53] VITALS: BP 147/75
[2016-10-17] MEDS ORDERED: DOXYCYCLINE HY100 M3 PO (14:14)
[2016-10-17] MEDS ORDERED: DUONEB 2.5-0.5 M3 ML AEROSOL (14:14)
[2016-10-17] MEDS ORDERED: SUMATRIPTAN SUC25 MG PO ×2 (14:14→16:32)
[2016-10-17] MEDS ORDERED: ALPRAZOLAM0.25 M2 PO (14:14)
[2016-10-17] MEDS ORDERED: PREDNISONE10 MG PO (14:14)
[2016-10-17] MEDS ORDERED: SPIRIVA1 INHALATI IH (14:15)
[2016-10-17] MEDS ORDERED: INDERAL10 MG PO (14:40)
[2016-10-17] MEDS ORDERED: EFFEXOR XR150 MG PO (14:40)
[2016-10-17] MEDS ORDERED: NICODERM CQ1 EAC1 TD (14:40)
[2016-10-17] MEDS ORDERED: CLONAZEPAM1 MG PO (14:40)
[2016-10-17] MEDS ORDERED: VENTOLIN HFA18 GM IH (14:40)
[2016-10-17] MEDS ORDERED: SEROQUEL12.5 MG PO (14:40)
[2016-10-17] MEDS ORDERED: SYMBICORT60 INHALAT IH (14:40)
[2016-10-17] MEDS ORDERED: EFFEXOR XR75 MG PO (14:40)
[2016-10-17 15:18] VITALS: BP 134/62
== END 2016-10-17 19:35 | disposition home health service (06) | DRG 190 ==
LOC: EME → EDBD 11:43 → EDOF 16:14 → 4WEST 16:14 → ENRESERV 16:19 → CANRESERV 16:19 → EDOF 23:25 → ENRESERV 23:29 → 4WEST 10-12 02:00 → ENRESERV 10-16 09:07 → CANRESERV 10-16 09:56 → ENRESERV 10-16 09:56 → CANRESERV 10-16 10:41 → ENRESERV 10-16 10:41 → 5SOUTH 10-17 08:46
PROVIDERS: Emergency Medicine; Internal Medicine
DX: J44.1 Chronic obstructive pulmonary disease with (acute) exacerbation (principal); J96.21 Acute and chronic respiratory failure with hypoxia; E87.2 Acidosis; J44.0 Chronic obstructive pulmonary disease with (acute) lower respiratory infection; Z91.19 Patient's noncompliance with other medical treatment and regimen; J96.22 Acute and chronic respiratory failure with hypercapnia; E87.5 Hyperkalemia; G40.909 Epilepsy, unspecified, not intractable, without status epilepticus; F41.9 Anxiety disorder, unspecified; G43.909 Migraine, unspecified, not intractable, without status migrainosus; F31.9 Bipolar disorder, unspecified; I51.7 Cardiomegaly; F17.210 Nicotine dependence, cigarettes, uncomplicated; Z99.81 Dependence on supplemental oxygen; Z82.49 Family history of ischemic heart disease and other diseases of the circulatory system; J20.9 Acute bronchitis, unspecified; R10.9 Unspecified abdominal pain; R19.7 Diarrhea, unspecified
CPT/HCPCS: 36600; 71010; 80048; 82607; 82746; 82803; 83735; 84100; 84484; 85025; 85027; 87040; 87070; 87205; 87641; 93005; 94002; 94003; 94640; 94640 76; 94760; 94799; 99202; 99281; 99285; J0456; J0696; J1100; J1650; J1885; J2405; J2930; J7050; J7120; J7512; J7644; S0028